=== PATIENT | female | born 1935 | race Asian ===

== ENCOUNTER 2017-09-23 19:03 | Emergency (ER) | payer MEDICARE, BC ==
[~2017-09-23] VITALS: Ht 162.6 cm; Wt 56.2 kg
[~2017-09-23 19:03] MED LIST: AMLO-147 PO; ASPI-676 PO; ATOR10TA65 PO; MECL-77 PO; NIT4 SL
[2017-09-23 19:05] VITALS: Ht 162.6 cm; Wt 56.2 kg
[2017-09-23] MEDS ORDERED: ASPIRIN 325 MG TAB PO STA (19:36)
[2017-09-23 19:49] LABS: ABNORMAL IP MESSAGE 1; BASOPHILS % 0.7 % (0.0-2.0); EOSINOPHILS # 0.2 10^3/ul (0.0-0.5); EOSINOPHILS % 3.4 % (0.0-7.0); HEMATOCRIT 33.2 % (37.0-47.0); HEMOGLOBIN 10.6 g/dl (12.0-16.0); LYMPHOCYTES # 1.4 10^3/ul (0.8-2.9); LYMPHOCYTES % 31.7 % (15.0-51.0); MEAN CORPUSCULAR HEMOGLOBIN 21.5 pg (29.0-33.0); MEAN CORPUSCULAR HGB CONC 31.9 g/dl (32.0-37.0); MEAN CORPUSCULAR VOLUME 67.5 fl (82.0-101.0); MEAN PLATELET VOLUME 9.4 fl (7.4-10.4); MONOCYTE # 0.6 10^3/ul (0.3-0.9); MONOCYTES % 13.2 % (0.0-11.0); NEUTROPHIL # 2.2 10^3/ul (1.6-7.5); NEUTROPHILS % 50.8 % (39.0-77.0); PLATELET COUNT 203 10^3/UL (140-415); RED BLOOD COUNT 4.92 10^6/ul (4.20-5.40); RED CELL DISTRIBUTION WIDTH 15.9 % (11.5-14.5); WHITE BLOOD COUNT 4.4 10^3/ul (4.8-10.8)
[2017-09-23 19:52] LABS: POSITIVE DIFF @See below
[2017-09-23 20:08] LABS: ALANINE AMINOTRANSFERASE 68 IU/L (13-69); ALBUMIN 4.1 g/dl (3.3-4.9); ALBUMIN/GLOBULIN RATIO 1.17; ALKALINE PHOSPHATASE 76 IU/L (42-121); ANION GAP 15 (8-16); ASPARTATE AMINO TRANSFERASE 65 IU/L (15-46); BILIRUBIN,INDIRECT 0.4 mg/dl (0-1.1); BILIRUBIN,TOTAL 0.4 mg/dl (0.2-1.3); BLOOD UREA NITROGEN 22 mg/dl (7-20); CALCIUM 9.3 mg/dl (8.4-10.2); CARBON DIOXIDE 25 mmol/L (21-31); CHLORIDE 105 mmol/L (97-110); CREATININE 1.02 mg/dl (0.44-1.00); GLUCOSE 112 mg/dl (70-220); SODIUM 141 mmol/L (135-144); TOTAL PROTEIN 7.6 g/dl (6.1-8.1)
[2017-09-23 20:19] LABS: TROPONIN-I < 0.012 ng/ml (0.00-0.12)
--- NOTE | 2017-09-23 21:42 | RADRPT ---
PROCEDURE: XR Chest. CLINICAL INDICATION: Chest pain. TECHNIQUE: Portable AP semi erect view of the chest was obtained. COMPARISON: 05/03/2013 FINDINGS: Moderate cardiac silhouette enlargement is present. The lungs are clear of acute infiltrates. Diffu se interstitial prominence is most likely related to senescent age-related changes There is no evide nce for pleural effusion, pneumothorax or pulmonary vascular congestion. Diffuse decreased minerali zation cannot exclude osteopenia or osteoporosis. No acute osseous abnormality is evident. Calcifica tion of the aorta is seen RPTAT:HJJR IMPRESSION: 1. Stable cardiac silhouette enlargement and senescent age-related changes of the lung parenchyma wi thout evidence for acute intrathoracic pathology. 2. Aortic atherosclerosis is present. Physician Sylvain Date Time Electronically viewed and signed by Physician Sylvain on 09/23/2017 21:42 JR/
[2017-09-23] MEDS ORDERED: AMLO5TAB4 PO (21:44)
[2017-09-23] MEDS ORDERED: METO-429 PO (21:46)
[2017-09-23] MEDS ORDERED: RIVA15TA PO (21:46)
--- NOTE | 2017-09-23 23:03 | ERD ---
ER Documentation Chief Complaint Chief Complaint chest pain w/ sob 1 hour ago HPI 81-year-old female with a history of hypertension and paroxysmal atrial fibrillation on Xarelto presents to the ED complaining of chest pain. Earlier this evening had a episode of unprovoked, nonradiating, generalized chest pain with shortness of breath, palpitations and dizziness that lasted approximately 20 minutes and resolved. No nausea, vomiting or diaphoresis. According to the daughter patient has been experiencing increasing forgetfulness over the last year and is a somewhat unreliable historian. Currently asymptomatic. No abdominal pain or back pain. No leg pain or swelling. No URI symptoms or cough. No fevers or chills. ROS All systems reviewed and are negative except as per history of present illness. Medications Home Meds Reported Medications Metoprolol Tartrate* (Lopressor*) 50 Mg Tab, 50 MG PO QHS, #60 TAB 09/23/17 Rivaroxaban* (Xarelto*) 15 Mg Tablet, 15 MG PO WITH BREAKFAST DINNE, TAB 09/23/17 Amlodipine Besylate* (Norvasc*) 5 Mg Tablet, 5 MG PO DAILY, TAB 09/23/17 Nitroglycerin* (Nitrostat*) 0.4 Mg Tab.subl, 0.4 MG SL PRN 05/03/13 Meclizine Hcl* (Meclizine Hcl*) 25 Mg Tablet, 25 MG PO 02/28/12 Discontinued Reported Medications Atorvastatin Calcium (Atorvastatin Calcium) 10 Mg Tab, PO HS 05/03/13 Amlodipine Besylate* (Amlodipine Besylate*) 10 Mg Tablet, 10 MG PO DAILY 02/21/12 Aspirin (Ranjeet Child) 81 Mg Chew, 81 MG PO DAILY 02/21/12 Allergies Allergies: Coded Allergies: No Known Allergy (Unverified , 09/23/17) PMhx/Soc Reviewed in chart. As per HPI. History of Surgery: Yes (GALLBLADDER EYE ELBOW SINUS, 2 x angiogram) Anesthesia Reaction: No Hx Neurological Disorder: No Hx Respiratory Disorders: Yes (asthma? ) Hx Cardiac Disorders: Yes (2 x ANGIOGRAM, arrhythmia) Hx Psychiatric Problems: No Hx Miscellaneous Medical Probl: No Hx Alcohol Use: No Hx Substance Use: No Hx Tobacco Use: No Smoking Status: Never smoker FmHx No stroke, cancer or sudden cardiac Physical Exam Vitals Vital Signs Date Time Temp Pulse Resp B/P Pulse Ox O2 Delivery O2 Flow Rate FiO2 09/24/17 00:05 67 24 130/74 94 Room Air 09/23/17 22:00 65 25 124/86 99 Room Air 09/23/17 20:00 68 21 133/91 97 Room Air 09/23/17 19:05 98.5 65 20 124/69 96 Physical Exam Const: Alert, no acute distress Head: Atraumatic Eyes: Normal Conjunctiva ENT: Normal External Ears, Nose and Mouth. Neck: Full range of motion. No JVD. No lymphadenopathy or masses Resp: Clear to auscultation bilaterally Cardio: Regular rate and rhythm, no murmurs Abd: Soft, non tender, non distended. Normal bowel sounds Skin: No petechiae or rashes Back: No midline or flank tenderness Ext: No cyanosis, or edema. Pulses 4+ in all extremities Neur: Awake and alert Psych: Normal Mood and Affect Result Diagram: 09/23/17193909/23/171939 Results 24 hrs Laboratory Tests Test 09/23/17 19:40 White Blood Count 4.410^3/ul Red Blood Count 4.9210^6/ul Hemoglobin 10.6g/dl Hematocrit 33.2% Mean Corpuscular Volume 67.5fl Mean Corpuscular Hemoglobin 21.5pg Mean Corpuscular Hemoglobin Concent 31.9g/dl Red Cell Distribution Width 15.9% Platelet Count 67426^3/UL Mean Platelet Volume 9.4fl Neutrophils % 50.8% Lymphocytes % 31.7% Monocytes % 13.2% Eosinophils % 3.4% Basophils % 0.7% Nucleated Red Blood Cells % 0.0/100WBC Neutrophils # 2.210^3/ul Lymphocytes # 1.410^3/ul Monocytes # 0.610^3/ul Eosinophils # 0.210^3/ul Basophils # 0.010^3/ul Nucleated Red Blood Cells # 0.010^3/ul Sodium Level 141mmol/L Potassium Level 4.0mmol/L Chloride Level 105mmol/L Carbon Dioxide Level 25mmol/L Anion Gap 15 Blood Urea Nitrogen 22mg/dl Creatinine 1.02mg/dl Glucose Level 112mg/dl Calcium Level 9.3mg/dl Total Bilirubin 0.4mg/dl Direct Bilirubin 0.00mg/dl Indirect Bilirubin 0.4mg/dl Aspartate Amino Transf (AST/SGOT) 65IU/L Alanine Aminotransferase (ALT/SGPT) 68IU/L Alkaline Phosphatase 76IU/L Troponin I < 0.012ng/ml Total Protein 7.6g/dl Albumin 4.1g/dl Globulin 3.50g/dl Albumin/Globulin Ratio 1.17 Current Medications Medications (Trade) Dose Ordered Sig/Susu Route PRN Reason Start Time Stop Time Status Last Admin Dose Admin Aspirin (Aspirin) 325 mg ONCE STAT PO 09/23/17 19:36 09/23/17 19:39 DC 09/23/17 19:49 EKG: TIME: 19: 10. Atrial fibrillation. Ventricular rate 75. Right bundle branch block. Left axis deviation. No acute ST segment elevation or depression. EP Interpretation: Abnormal EKG. IMAGING: PROCEDURE: XR Chest. CLINICAL INDICATION: Chest pain. TECHNIQUE: Portable AP semi erect view of the chest was obtained. COMPARISON: 05/03/2013 FINDINGS: Moderate cardiac silhouette enlargement is present. The lungs are clear of acute infiltrates. Diffuse interstitial prominence is most likely related to senescent age-related changes There is no evidence for pleural effusion, pneumothorax or pulmonary vascular congestion. Diffuse decreased mineralization cannot exclude osteopenia or osteoporosis. No acute osseous abnormality is evident. Calcification of the aorta is seen RPTAT:HJJR IMPRESSION: 1. Stable cardiac silhouette enlargement and senescent age-related changes of the lung parenchyma without evidence for acute intrathoracic pathology. 2. Aortic atherosclerosis is present. Physician Sylvain Date Time Electronically viewed and signed by Physician Sylvain on 09/23/2017 21:42 JR/ Procedures/MDM DOCUMENTS REVIEWED: ED nurse, prior records during previous admission for chest pain. Patient had previous cardiac catheterization with unknown results. REEXAMINATION/REEVALUATION: Time:10:45. Doing well. Sinus rhythm without ectopy. Asymptomatic. MEDICAL DECISION MAKIN-year-old female with a history of hypertension and paroxysmal atrial fibrillation on Xarelto presents to the ED complaining of chest pain. No acute ECG changes or elevated troponin. No radiographic evidence of pneumonia or pneumothorax. A broad differential was considered including not limited to acute coronary syndrome, myocardial infarction, aortic dissection and pulmonary embolism. Acute coronary syndrome is unlikely as his pulmonary embolism especially as the patient is already anticoagulated on Xarelto. This may be attributed to a brief episode of atrial fib with RVR but this was not documented. Stable for discharge with precautionary instructions, urgent outpatient follow-up as counseled within 48 hours or return to the ED immediately if symptoms recur. Counseled the family regarding diagnostic workup, diagnosis and need for followup. Understands to return to ED if symptoms recur, worsen or any other concerns. Departure Diagnosis: Primary Impression: Chest pain Chest pain type: unspecified Qualified Code: R07.9 - Chest pain, unspecified type Additional Impressions: Hypertension Hypertension type: unspecified Qualified Code: I10 - Hypertension, unspecified type Anxiety Condition: TRES Adams MD Sep 23, 2017 23:03
[2017-09-24 00:05] VITALS: BP 130/74; PULSE 67; RESP 24
== END 2017-09-24 00:10 | disposition home or self-care (01) ==
LOC: E/R 19:03
DX: I10 Essential (primary) hypertension (principal); F41.9 Anxiety disorder, unspecified; Z79.01 Long term (current) use of anticoagulants; Z79.82 Long term (current) use of aspirin
CPT/HCPCS: 36415; 71010; 80053; 84484; 85025